=== PATIENT | female | born 1965 | race African-American/Black ===

== ENCOUNTER → 2020-12-05 | Outpatient (CLI) | payer OTHER ==
[~2020-12-05] MED LIST: PERFLUTREN PROTEIN-A MICROSPHR 0.22 MG/ML 3 ML VIAL. IV ONE
--- NOTE | 2020-12-05 16:05 | RAD ---
MR#: [id number] Date of Study: 12/05/2020 Ordering Physician: GAVIN CARTER, Referring Physician: ASHLEY SHEPPARD Tech: ELIZABETH Woods APPROVED REPORT Test Type: Exercise Stress Nurse/Tech: JAYLENE GRIFFITH Test Indications: CHEST PAIN Cardiac History: SEE EMR Medications: SEE EMR Medical History: SMOKER, SEE EMR Resting ECG: SR Resting Heart Rate: 73 bpm Resting Blood Pressure: 108/71mmHg Pretest Chest Pain: No chest pain Nurse/Tech Notes S1,S2, LUNGS CTA, DENIED CHEST PAIN OR SOA. VSS. Consent: The procedure was explained to the patient in lay terms. Informed consent was witnessed. Thiago eout was entered into [employer]. History and Stress Test performed by RT Clifton (Kang) (N) Stress Symptoms ONLY COMPLAINT PATIENT HAD WAS SOA DURING TREADMILL TEST. VSS. DENIED CHEST PAIN. POST EXERCISE Reason for Termination: Reached target heart rate Target HR: 139 Max HR: 166 bpm 119% of Maximum Predicted HR: 139 bpm Exercise duration: 7:20 min:sec, 3 Stage Exercise capacity: 10.0METs Max Blood Pressure: 150/84mmHg Blood Pressure response to exercise: Normal blood pressure response during stress. Heart Rate response to exercise: WNL Chest Pain: No. Arrhythmia: No. ARTIFACT NOTED DURING TREADMILL TEST, NO SIGNIFICANT CHANGES NOTED FROM BASELINE EKG. PT TOLERATED TEST WELL. INTERPRETATION Stress EKG Conclusion: Baseline EKG showed sinus rhythm. No ischemic changes at peak stress. No arr hythmias. Imaging Protocol IMAGE PROTOCOL: Rest Tc-99m/stress Tc-99m 1 day Rest: Stress: Viability: Radiopharm.Tc99m IgbsikxevAa72n Sestamibi Hucl65xLg 33mCi Duration 15min. 13min. Img Date 12/05/2020 12/05/2020 Inj-Img Pywn79fcx. 60min. Post-Injection Exercise: 1 minute Rest Admin Site:IV - Right AntecubitalAdministrator:ELIZABETH Woods Stress Admin Site: IV - Right AntecubitalAdministrator: Jaswinder Jacques, RT (R)(N) STRESS DATA End Diast. Vol.78.0mlLVEDV index BSA34.0ml End Syst. Vol.14.0mlLVESV index BSA6.0ml Myocardial Sozh027.0gEject. Phyntsym41.0% Stress Scores Regional WT0.00Summed WT0.00 Regional WM0.00Summed WM0.00 Study quality was good. Left Ventricular size was Normal at Rest and Stress. Lung uptake was . Left Ventricular ejection fraction is 82%. The rest and stress images show normal perfusion, normal contraction and thickening. LV Perf. Quant 17 Seg. SSS0.00 17 Seg. SRS1.00 17 Seg. SDS0.00 Stress Defect Extent (% LAD)0.00Rest Defect Extent (% LAD)0.00Rev. Defect Extent (% LAD)0.00 Stress Defect Extent (% LCX) 0.00Rest Defect Extent (% LCX)0.00Rev. Defect Extent (% LCX)0.00 Stress Defect Extent (% RCA)0.00Rest Defect Extent (% RCA)0.00Rev. Defect Extent (% RCA)0.00 Stress Defect Extent (% THEODORA)0.00Rest Defect Extent (% THEODORA)0.00Rev. Defect Extent (% THEODORA)0.00 Conclusion 1. Treadmill exercise cardioisotope stress test did not show any evidence of ischemia or infarct. 2. Normal left ventricular systolic function with ejection fraction calculated at 82%. 3. Low risk for cardiac events. Signed by : Sathya Barker, Electronically Approved : 12/05/2020 16:05:29
--- NOTE | 2020-12-05 16:40 | CARD ---
MR#: [id number] Date of Study: 12/05/2020 Ordering Physician: GAVIN CARTER, Referring Physician: GAVIN CARTER, Tech: Jostin Mclean [facility] APPROVED REPORT EXAM: Two-dimensional and M-mode echocardiogram with Doppler and color Doppler. Other Information Quality : FairHR: 81bpm Rhythm : NSRTechnically limited study due to body habitus and smoking. INDICATION Chest Pain Echo Enhancing Agent Indication: Endocardial border delineation Agent/Amount Used: Optison 2mL RISK FACTORS Hypertension Obesity Smoking 2D DIMENSIONS Left Atrium(2D)3.5 (1.6-4.0cm)IVSd1.1 (0.7-1.1cm) Aortic Root(2D)2.9 (2.0-3.7cm)LVDd4.1 (3.9-5.9cm) LVOT Diameter1.9 (1.8-2.4cm)PWd1.0 (0.7-1.1cm) LVDs2.0 (2.5-4.0cm)FS (%) 51.6 % SV61.4 mlLVEF(%)83.2 (>50%) Aortic Valve AoV Peak Adin.122.4cm/sAoV VTI24.4cm AO Peak GR.6.0mmHgLVOT Peak Adin.97.3cm/s AO Mean GR.3mmHgAVA (VMAX)2.19cm2 Mitral Valve MV E Kgvepgix05.1cm/sMV E Peak Gr.4mmHg MV DECEL [id number] A Fquiemli81.9cm/s MV E Mean Gr.1mmHgE/A Ratio0.5 Pulmonary Valve PV Peak Cqyxcnms22.1cm/s Tricuspid Valve TR P. Enubsexs785oe/sTR Peak Gr.20mmHg Pulmonary Vein S1 Byycjhap05.9cm/sD2 Tihzcydj63.5cm/s LEFT VENTRICLE The left ventricle is normal size. There is normal left ventricular wall thickness. The left ventricu lar systolic function is normal. The ejection fraction is estimated at 55-60%. There is normal LV seg mental wall motion. Transmitral Doppler flow pattern is Grade I-abnormal relaxation pattern. No left ventricle thrombus noted on this study. There is no ventricular septal defect visualized. There is no left ventricular aneurysm. There is no mass noted in the left ventricle. RIGHT VENTRICLE The right ventricle is normal size. There is normal right ventricular wall thickness. The right ventr icular systolic function is normal. ATRIA The left atrium size is normal. The right atrium size is normal. The interatrial septum is intact wit h no evidence for an atrial septal defect or patent foramen ovale as noted on 2-D or Doppler imaging. AORTIC VALVE The aortic valve is normal in structure and function. Doppler and Color Flow revealed no significant aortic regurgitation. There is no significant aortic valvular stenosis. There is no aortic valvular v egetation. MITRAL VALVE The mitral valve is normal in structure and function. There is no evidence of mitral valve prolapse. There is no mitral valve stenosis. Doppler and Color-flow revealed trace mitral regurgitation. TRICUSPID VALVE The tricuspid valve is normal in structure and function. Doppler and Color Flow revealed trace tricus pid regurgitation. There is no tricuspid valve prolapse or vegetation. There is no tricuspid valve st enosis. PULMONIC VALVE The pulmonary valve is normal in structure and function. Doppler and Color Flow revealed no pulmonic valvular regurgitation. There is no pulmonic valvular stenosis. GREAT VESSELS The aortic root is normal in size. The ascending aorta is normal in size. The pulmonary artery is nor mal. The IVC is normal in size and collapses >50% with inspiration. PERICARDIAL EFFUSION There is no pleural effusion. There is no evidence of significant pericardial effusion. Critical Notification Critical Value: No <Conclusion> The left ventricular systolic function is normal. The ejection fraction is estimated at 55-60%. There is normal LV segmental wall motion. Transmitral Doppler flow pattern is Grade I-abnormal relaxation pattern. Trace mitral regurgitation. Trace tricuspid regurgitation. There is no evidence of significant pericardial effusion. Signed by : Sathya Barker, Electronically Approved : 12/05/2020 16:40:07
== END ==
LOC: NM 08:46
PROVIDERS: ATTEND Internal Medicine Cardiovascular Disease
DX: I34.0 Nonrheumatic mitral (valve) insufficiency (principal); R07.9 Chest pain, unspecified
CPT/HCPCS: 78452; 93017; 93306; A9500; Q9956